=== PATIENT | male | born 1995 ===

== ENCOUNTER 2020-02-16 08:05 | Day surgery (SDC) | payer BC ==
[~2020-02-16 08:05] MED LIST: Lactated Ringers 1,000 ML IV SCH
[2020-02-16] MEDS ORDERED: Lidocaine 2% 5 ML SDV ONE (08:25)
[2020-02-16] MEDS ORDERED: Ondansetron 4 MG/2 ML SDV ONE (08:25)
[2020-02-16] MEDS ORDERED: Ketamine 500 mg/10 ML MDV ONE (08:27)
[2020-02-16] MEDS ORDERED: fentaNYL 100 MCG/2 ML SDV ONE (08:27)
[2020-02-16] MEDS ORDERED: HYDROmorphone 2 MG/ML Syringe ONE (08:27)
[2020-02-16] MEDS ORDERED: Propofol 200 MG/20 ML SDV ONE (08:27)
--- NOTE | 2020-02-16 08:43 | PCM.PREANE ---
Preanesthetic Assessment - Anesthesia/Transfusion/Family Hx Anesthesia History: Prior Anesthesia Without Reaction Family History of Anesthesia Reaction: No Transfusion History: No Prior Transfusion(s) - Review of Systems General: No Symptoms Pulmonary: No Symptoms Cardiovascular: No Symptoms Gastrointestinal: No Symptoms Neurological: No Symptoms Other: Reports: None - Physical Assessment NPO Status Date: 02/15/20 Height: 5 ft 10 in Weight: 65.317 kg ASA Class: 1 Mental Status: Alert & Oriented x3 Airway Class: Mallampati = 1 Dentition: Reports: Normal Dentition ROM/Head Extension: Full Lungs: Clear to Auscultation, Normal Respiratory Effort Cardiovascular: Regular Rate, Regular Rhythm - Allergies Allergies/Adverse Reactions: Allergies Allergy/AdvReac Type Severity Reaction Status Date / Time No Known Allergies Allergy Verified 02/10/20 12:46 - Blood Blood Available: No - Anesthesia Plan Pre-Op Medication Ordered: None - Acknowledgements Anesthesia Type Planned: General Anesthesia Pt an Appropriate Candidate for the Planned Anesthesia: Yes Alternatives and Risks of Anesthesia Discussed w Pt/Guardian: Yes Pt/Guardian Understands and Agrees with Anesthesia Plan: Yes Additional Comments: pmh: none PLAN: mac/tiva PreAnesthesia Questionnaire Other HEENT History: top and bottom permanent dental retainers Cardiovascular History: Reports: None Respiratory History: Reports: None Gastrointestinal History: Reports: None Genitourinary History: Reports: None Musculoskeletal History: Reports: None Neurological History: Reports: Migraines Other Neuro History: migraines in the past Psychiatric History: Reports: None Endocrine/Metabolic History: Reports: None Hematologic History: Reports: None Immunologic History: Reports: None Oncologic (Cancer) History: Reports: None Dermatologic History: Reports: None - Infectious Disease History Infectious Disease History: Reports: None - Past Surgical History Head Surgeries/Procedures: Reports: None HEENT Surgical History: Reports: Myringotomy w Tube(s), Oral Surgery Cardiovascular Surgical History: Reports: None Respiratory Surgical History: Reports: None GI Surgical History: Reports: None Female Surgical History: Male Surgical History: Reports: None Endocrine Surgical History: Reports: None Neurological Surgical History: Reports: None Musculoskeletal Surgical History: Reports: None Oncologic Surgical History: Reports: None Dermatological Surgical History: Reports: None - SUBSTANCE USE Tobacco Use Status *Q: Never Tobacco User - HOME MEDS Home Medications: Home Meds . [No Known Home Meds] 02/10/20 [History] - CURRENT (IN HOUSE) MEDS Current Meds: Current Medications Lactated Ringer's (Ringers, Lactated) 1,000 mls @ 125 mls/hr IV ASDIRECTED DYAN Discontinued Medications Fentanyl (Sublimaze) Confirm Administered Dose 100 mcg .ROUTE .STK-MED ONE Stop: 02/16/20 08:28 Hydromorphone HCl (Dilaudid) Confirm Administered Dose 2 mg .ROUTE .STK-MED ONE Stop: 02/16/20 08:28 Ketamine HCl (Ketalar) Confirm Administered Dose 500 mg .ROUTE .STK-MED ONE Stop: 02/16/20 08:28 Lidocaine (Xylocaine-Mpf 2%) Confirm Administered Dose 5 ml .ROUTE .STK-MED ONE Stop: 02/16/20 08:26 Ondansetron HCl (Zofran) Confirm Administered Dose 4 mg .ROUTE .STK-MED ONE Stop: 02/16/20 08:26 Propofol (Diprivan 20 Ml) Confirm Administered Dose 600 mg .ROUTE .STK-MED ONE Stop: 02/16/20 08:28
[2020-02-16] MEDS ORDERED: Midazolam 1 MG/ML 2 ML SDV ONE (09:33)
[2020-02-16] MEDS ORDERED: Bupivacaine 0.5% 10 ML SDV ONE (09:35)
[2020-02-16] MEDS ORDERED: Ketorolac 30 MG/ML SDV ONE (10:23)
--- NOTE | 2020-02-16 11:21 | OR ---
SURGEON: Dm Chávez M.D. DATE OF PROCEDURE: 02/16/2020 OPERATION PERFORMED: Excision of left forearm mass x2 with one being 1 cm in size and the other being 2.5 cm in size. PRIMARY SURGEON: Dm Chávez MD PARTS PICKER: Shearing Machine Feeder: ROMIE Villafuerte student. ANESTHESIA: General LMA. ASA CLASSIFICATION: I. PREOPERATIVE DIAGNOSIS: Enlarging left forearm mass x2. POSTOPERATIVE DIAGNOSIS: Enlarging left forearm mass x2. ESTIMATED BLOOD LOSS: 10 mL. INTRAOPERATIVE FLUID REPLACEMENT: 800 mL of crystalloid. DESCRIPTION OF PROCEDURE: The patient was taken to the operating room and placed on the operating table in the supine position. Time-out was called for appropriate identification of the patient and procedure. The surgical sites had been marked prior to the patient entering the operating room. The left arm was now prepped with Betadine solution. Sterile drapes were applied. Skin incisions had previously been marked out. The upper left forearm mass was removed first. The skin was infiltrated with 0.5% Marcaine solution. Skin incision was made and deepened down to the subcutaneous mass. Hemostasis was obtained with the use of electrocautery. Using a combination of blunt dissection and cautery, the mass was removed. Wound was inspected for hemostasis and small bleeding points were electrocoagulated. Our attention was then turned to the lower forearm mass, which was smaller in size. Again, the skin was infiltrated with 0.5% Marcaine solution. Skin incision was made and deepened through the subcutaneous tissue, obtaining hemostasis with the use of electrocautery. The mass was again easily identified and again removed with a combination of blunt dissection and electrocautery. The wound was again inspected for hemostasis and no bleeding was noted. Both incisions were closed with subcuticular 4-0 Monocryl and Steri- Stripped with half-inch plain Steri-Strips. The wounds were further dressed with sterile Tegaderm pads. Sponge, needle, and instrument counts were all correct. The patient tolerated the procedure well. Following emergence from anesthesia and extubation, he was taken to recovery room in stable condition. ABDULLAHI / ELDA /[id number]
--- NOTE | 2020-02-16 11:21 | PCM.OPNOTE ---
- General Post-Op/Procedure Note Date of Surgery/Procedure: 02/16/20 Operative Procedure(s): Excision 1 cm and 2.5 cm left forearm masses Pre Op Diagnosis: Enlarging symptomatic left forearm mass X2 Post-Op Diagnosis: Same Anesthesia Technique: General LMA (ASA I) Primary Surgeon: Dm Chávez Eyeglass Inspector: Chelsy Crawley Fluid Replacement, Intraop: 800 EBL in mLs: 10 Condition: Good Free Text/Narrative:: Intake & Output 02/15/20 02/16/20 02/16/20 19:59 03:59 11:59 Intake Total 900 Balance 900 DICTATION [id number] CPT CODE [id number]
[2020-02-16] MEDS ORDERED: Lactated Ringers 1,000 ML IV SCH (11:30)
--- NOTE | 2020-02-16 12:19 | PCM.POSTAN ---
POST ANESTHESIA ASSESSMENT - MENTAL STATUS Mental Status: Alert, Oriented - VITAL SIGNS Vital Signs: Last Vital Signs Temp 98.1 F 02/16/20 10:48 Pulse 66 02/16/20 11:18 Resp 14 02/16/20 11:18 BP 126/67 02/16/20 11:18 Pulse Ox 100 02/16/20 11:18 - RESPIRATORY Respiratory Status: Respiratory Rate WNL, Airway Patent, O2 Saturation Stable - CARDIOVASCULAR CV Status: Pulse Rate WNL, Blood Pressure Stable - GASTROINTESTINAL GI Status: No Symptoms - POST OP HYDRATION Hydration Status: Adequate & Stable
--- NOTE | 2020-02-16 12:20 | PCM48HPAN ---
Post Anesthesia Note - EVALUATION WITHIN 48HRS OF ANESTHETIC Vital Signs in Normal Range: Yes Patient Participated in Evaluation: Yes Respiratory Function Stable: Yes Airway Patent: Yes Cardiovascular Function Stable: Yes Hydration Status Stable: Yes Pain Control Satisfactory: Yes Nausea and Vomiting Control Satisfactory: Yes Mental Status Recovered: Yes Vital Signs: Last Vital Signs Temp 98.1 F 02/16/20 10:48 Pulse 66 02/16/20 11:18 Resp 14 02/16/20 11:18 BP 126/67 02/16/20 11:18 Pulse Ox 100 02/16/20 11:18
== END 2020-02-16 11:35 | disposition home or self-care (01) ==
LOC: MW.SDS 08:05
PROVIDERS: ATTEND Surgery
DX: D17.22 Benign lipomatous neoplasm of skin and subcutaneous tissue of left arm (principal); Z98.890 Other specified postprocedural states; Z84.0 Family history of diseases of the skin and subcutaneous tissue
CPT/HCPCS: 25075; J1170; J1885; J2001; J2250; J2405; J2704; J3010; J3490; J7120; 00400; 88304